=== PATIENT | female | born 1995 | race Caucasian/White ===

== ENCOUNTER 2022-12-11 07:17 | Emergency (ER) | payer OTHER ==
[~2022-12-11] VITALS: Ht 162.5 cm; Wt 78.5 kg
[2022-12-11 08:00] LABS: BASO % 0.3 % (0.0-1.0); EOS % 0.5 % (1.0-4.0); HEMATOCRIT 39.6 % (37.0-47.0); LYMPH # 0.7 10*3/uL (1.3-4.4); LYMPH % 12.5 % (27.0-41.0); MEAN CELL VOLUME 93.8 fl (81.0-99.0); MEAN CORPUSCULAR HGB 31.5 pg (27.0-31.0); MEAN CORPUSCULAR HGB CONC 33.6 g/dl (33.0-37.0); MEAN PLATELET VOLUME 8.3 fl (9.6-12.3); MONO # 0.4 10*3/uL (0.1-1.0); MONO % 6.1 % (3.0-9.0); NEUT # 4.7 10*3/uL (2.3-7.9); NEUT % 80.4 % (47.0-73.0); PLATELET COUNT AUTOMATED 273 10*3/uL (130-400); RED BLOOD COUNT 4.22 10*6/uL (4.10-5.10); RED CELL DISTRI WIDTH 13.2 % (0-14.5); WHITE BLOOD COUNT 5.9 10*3/uL (4.8-10.8)
[2022-12-11 08:11] LABS: ACT PARTIAL THROMBO TIME 28.1 SECONDS (20.0-32.1); INTERNATIONAL NORM RATIO 1.1 (2.0-3.5)
[2022-12-11 08:24] LABS: BILIRUBIN Negative (Negative); BLOOD Trace-Lysed (Negative); CLARITY Clear (Clear); COLOR Yellow (Yellow); GLUCOSE Negative (Negative); KETONE Trace (Negative); LEUKO ESTERASE Negative (Negative); NITRITE Negative (Negative); PH 5.5 (4.5-8.0); SPECIFIC GRAVITY 1.015 (1.001-1.030)
[2022-12-11 08:31] LABS: URINE AMPHETAMINES Negative (1000ng/ml); URINE BARBITURATES Negative (200ng/ml); URINE BENZODIAZEPINES Negative (200ng/ml); URINE CANNABINOIDS (THC) Negative (50ng/ml); URINE COCAINE Positive (300ng/ml); URINE METHADONE Negative (300ng/ml); URINE OPIATES Negative (300ng/ml); URINE PHENCYCLIDINE Negative (25ng/ml)
[2022-12-11 08:33] LABS: WBC 0-2 wbc/hpf (0-5)
[2022-12-11 09:02] LABS: ALKALINE PHOSPHATASE 124 U/L (46-116); BUN 9 mg/dl (9-23); CHLORIDE 108 mmol/L (98-107); LIPASE 29 U/L (12-53); POTASSIUM 3.9 mmol/L (3.4-5.1); SGPT/ALT 142 U/L (10-49); TOTAL PROTEIN 6.7 gm/dL (6.0-8.0)
[2022-12-11 09:20] LABS: BETA-HCG, QUANT < 3.0 mIU/mL (3-10)
[2022-12-11] MEDS ORDERED: KEPPRA750 MG PO (12:51)
== END 2022-12-11 12:58 | disposition home or self-care (01) ==
LOC: ED 07:17
PROVIDERS: Emergency Medicine
DX: R56.9 Unspecified convulsions (principal)

== ENCOUNTER 2023-11-20 13:04 | Emergency (ER) | payer OTHER ==
[~2023-11-20] VITALS: Ht 154.9 cm; Wt 63.5 kg
[~2023-11-20 13:04] MED LIST: KEPPRA750 MG PO
[2023-11-20] MEDS ORDERED: AMOX-CLAV 875-1 EACH PO (13:27)
[2023-11-20] MEDS ORDERED: Ketorolac Tromethamine 30 MG/ML VIAL IM ONE (13:30)
[2023-11-20] MEDS ORDERED: Dexamethasone Sodium Phospha 20 MG/5 ML VIAL IM ONE (13:30)
== END 2023-11-20 14:03 | disposition home or self-care (01) ==
LOC: ED 13:04
DX: J02.0 Streptococcal pharyngitis (principal)